=== PATIENT | female | born 1960 | race Caucasian/White ===

== ENCOUNTER 2019-04-15 10:14 | Observation (INO) | payer SELFPAY ==
--- NOTE | 2019-04-15 10:33 | RAD ---
EXAM: Single view of the chest HISTORY: Chest pain COMPARISON: None FINDINGS: Single view of the chest shows a normal sized cardiomediastinal silhouette. There appears to be a small to moderate hiatal hernia. There is no evidence of consolidation, mass, or pleural effusion. The bones are unremarkable. IMPRESSION: No evidence of acute cardiopulmonary disease
[2019-04-15 11:16] LABS: #Lymphocytes 1.6 thou/uL (1.20-3.40); #Monocytes 0.5 thou/uL (0.11-0.59); #Neutrophils 3.2 thou/uL (1.40-6.50); %Basophils 0.9 % (0.0-1.0); %Eosinophils 0.4 % (0.0-10.0); %Lymphocytes 29.9 % (21.0-51.0); %Monocytes 8.5 % (0.0-10.0); %Neutrophils 60.4 % (42.0-75.0); Mean Corpuscular HGB CONC 32.2 g/dL (32.0-36.0); Mean Corpuscular Hemoglobin 27.8 pg (27.0-31.0); Mean Corpuscular Volume 86.2 fL (78.0-98.0); Mean Platelet Volume 7.8 fL (7.4-10.4); Platelet Count 257 thou/uL (130-400); RBC Distribution Width 13.5 % (11.5-14.5); Red Blood Cell (RBC) Count 4.32 mill/uL (4.20-5.40); White Blood Cell (WBC) Count 5.3 thou/uL (4.8-10.8)
[2019-04-15] MEDS ORDERED: Nitroglycerin 2% Ointment 1 INCH/1 GM Packet ONE ×2 (11:22→17:15)
[2019-04-15 11:54] LABS: ALT (SGPT) 21 U/L (8-55); AST (SGOT) 21 U/L (5-34); Albumin 4.1 g/dL (3.5-5.0); Alkaline Phosphatase 97 U/L (40-150); Anion Gap 13 mmol/L (10-20); BUN (Urea Nitrogen) 11 mg/dL (9.8-20.1); Bilirubin, Total 0.2 mg/dL (0.2-1.2); CK (CPK) 192 U/L (29-168); Calc. Creatinine Clearance 0 mL/min (70-130); Calcium 9.4 mg/dL (7.8-10.44); Carbon Dioxide 23 mmol/L (22-29); Chloride 110 mmol/L (98-107); Estimated GFR-MDRD 71; Globulin 2.2 g/dL (2.4-3.5); Glucose 101 mg/dL (70-105); Lipase 36 U/L (8-78); Potassium 4.1 mmol/L (3.5-5.1); Protein, Total 6.3 g/dL (6.0-8.3); Sodium 142 mmol/L (136-145)
[2019-04-15 16:42] VITALS: BMI 30.5
[2019-04-15] MEDS ORDERED: Acetaminophen 325 MG TAB PO PRN (16:48)
[2019-04-15] MEDS ORDERED: Ondansetron ODT 4 MG TAB SL PRN (16:48)
[2019-04-15] MEDS ORDERED: Ondansetron PF 4 MG/2 ML Vial IVP PRN (16:48)
[2019-04-15 17:41] LABS: Troponin I Less than 0.010 ng/mL (< 0.028)
[2019-04-15] MEDS ORDERED: Senokot S 8.6-50 MG TAB PO PRN (17:56)
[2019-04-15] MEDS ORDERED: HYDROcodone/Acetaminophen 5/325 mg Tablet PO PRN (17:56)
[2019-04-15] MEDS: Famotidine 20 MG TAB PO SCH (18:22)
[2019-04-15 19:40] LABS: Troponin I Less than 0.010 ng/mL (< 0.028)
[2019-04-15] MEDS ORDERED: Nitroglycerin 2% Ointment 1 INCH/1 GM Packet TOP SCH (22:00)
--- NOTE | 2019-04-16 00:49 | HP ---
PRIMARY CARE PHYSICIAN: Dr. Benavides. CHIEF COMPLAINT: Chest pain. HISTORY OF PRESENT ILLNESS: Ms. Pickett is a 58-year-old female, who reported to the emergency room after having severe chest pain this morning. Reports that it radiated to her neck, shoulder and left arm. Reports that she has had similar episodes in the last couple of months, but today was the worst. She reports some shortness of breath with some nausea. Denies any vomiting. Reports right ankle and legs swell on occasion. Denies smoking, fevers, chills, abdomen pain, dysuria, hematuria, or incontinence. The patient reports that the nitroglycerin paste that she got today actually helped the pain and that has subsided. EKG in the emergency room shows normal sinus rhythm at [address] segments, T-waves are normal, axis is normal, initial troponin x2 is undetectable. The patient to be admitted to the observation unit for further chest pain workup. REVIEW OF SYSTEMS: Reports chest pain with radiation to neck and left arm. Reports intermittent lower leg extremity swelling. All other systems are reviewed and are negative unless mentioned in the HPI. PAST MEDICAL HISTORY: Pertinent for GERD. PAST SURGICAL HISTORY: Cholecystectomy. PSYCHIATRIC HISTORY: Depression. SOCIAL HISTORY: The patient lives at home with family. Denies any alcohol or drug use. Has no smoking history. KNOWN ALLERGIES: None. CURRENT MEDICATIONS: The patient takes; 1. Celexa 40 mg p.o. daily. 2. Protonix 20 mg p.o. b.i.d. PHYSICAL EXAMINATION: VITAL SIGNS: Blood pressure 123/72, pulse is 82, respiratory rate is 18, temperature is 98.5, pO2 sats are 98% on room air. CONSTITUTIONAL: The patient is in no apparent distress. She is alert and oriented to person, place, and time. HEENT: Head is atraumatic and normocephalic. Eyes; eyelids are normal to inspection. Pupils are equally round and reactive to light. ENT; mouth exam is normal. Mucous membranes are moist. NECK: Normal range of motion. RESPIRATORY/CHEST: Breath sounds are clear. Chest expansion is equal. CARDIOVASCULAR: Regular heart rate and rhythm. Heart sounds are normal. ABDOMEN: Nontender. Bowel sounds are heard. BACK: Normal range of motion. No tenderness. EXTREMITIES: Upper extremity; normal inspection, normal range of motion, no edema is noted, radial pulses equal bilaterally. Lower extremity; femoral pulses normal, no clubbing, no edema, no tenderness is noted, pedal pulses equal bilaterally. NEUROLOGIC: The patient is oriented to person, place, and time. Speech is normal. SKIN: Warm, dry, normal in color. ASSESSMENT AND PLAN: 1. Chest pain. We will trend troponins, first two have been undetectable. The patient will have a stress test in the morning to further rule out acute coronary syndrome. We will check fasting lipids in the morning. Check TSH level. We have added aspirin 325 mg p.o. daily. 2. History of depression. We will continue home medications. 3. History of gastroesophageal reflux disease. We will continue home medications. 4. Gastrointestinal and deep venous thrombosis prophylaxis has been started. Job ID: [id number]
[2019-04-16 06:06] LABS: #Eosinphils 0.1 thou/uL (0.0-0.7); #Monocytes 0.5 thou/uL (0.11-0.59); #Neutrophils 2.3 thou/uL (1.40-6.50); %Basophils 0.8 % (0.0-1.0); %Eosinophils 1.1 % (0.0-10.0); %Lymphocytes 40.8 % (21.0-51.0); %Monocytes 10.5 % (0.0-10.0); %Neutrophils 46.8 % (42.0-75.0); Hemoglobin 12.4 g/dL (12.0-16.0); Mean Corpuscular Hemoglobin 28.3 pg (27.0-31.0); Mean Corpuscular Volume 85.8 fL (78.0-98.0); Mean Platelet Volume 8.1 fL (7.4-10.4); Platelet Count 231 thou/uL (130-400); RBC Distribution Width 13.4 % (11.5-14.5); Red Blood Cell (RBC) Count 4.36 mill/uL (4.20-5.40); White Blood Cell (WBC) Count 4.9 thou/uL (4.8-10.8)
[2019-04-16 06:26] LABS: Anion Gap 11 mmol/L (10-20); BUN (Urea Nitrogen) 11 mg/dL (9.8-20.1); Calc. Creatinine Clearance 93 mL/min (70-130); Calcium 9.1 mg/dL (7.8-10.44); Carbon Dioxide 24 mmol/L (22-29); Cardiac Risk 4.6 (Less than 4.5); Chloride 107 mmol/L (98-107); Cholesterol 226 mg/dl (< 200 Desired); Estimated GFR-MDRD 72; Glucose 91 mg/dL (70-105); HDL Cholesterol 49 mg/dL (>60 Neg Risk); LDL Cholesterol, Calculated 150 mg/dL; Potassium 3.9 mmol/L (3.5-5.1); Sodium 138 mmol/L (136-145); Triglycerides 133 mg/dL (Less than 150)
[2019-04-16] MEDS: Famotidine 20 MG TAB PO SCH ×3 (09:09→20:24)
[2019-04-16] MEDS: Citalopram 20 MG TAB PO SCH ×2 (09:09→11:45)
[2019-04-16] MEDS: Enoxaparin Sodium 40 MG/0.4 ML SYRINGE SC SCH (09:09)
[2019-04-16] MEDS: Aspirin 325 mg Enteric Coated Tablet PO SCH ×2 (09:09→11:45)
--- NOTE | 2019-04-16 14:26 | PDOC.HOSPP ---
- Subjective Encounter Date: 04/16/19 Encounter Time: 12:20 Subjective: is sitting in chair, no chest pain or palp - Objective Vital Signs & Weight: Vital Signs (12 hours) Temp Pulse Resp BP Pulse Ox 04/16/19 11:40 98.3 F 67 16 118/61 100 04/16/19 07:34 98.4 F 74 16 113/57 L 96 04/16/19 04:48 97.9 F 79 18 111/60 97 Weight Weight 172 lb 4.8 oz I&O: 04/15/19 04/16/19 04/17/19 06:59 06:59 06:59 Intake Total 1200 Output Total 800 Balance 400 Result Diagrams: 04/16/19 05:35 04/16/19 05:35 Hospitalist ROS - Medication Medications: Active Medications Generic Name Dose Route Start Last Admin Trade Name Charlieq PRN Reason Stop Dose Admin Aspirin 325 mg 04/16/19 09:00 04/16/19 11:45 Ecotrin PO 325 mg DAILY JP Administration Citalopram Hydrobromide 40 mg 04/16/19 09:00 04/16/19 11:45 Celexa PO 40 mg DAILY JP Administration Enoxaparin Sodium 40 mg 04/16/19 09:00 04/16/19 09:09 Lovenox SC Not Given 09 JP Famotidine 20 mg 04/15/19 21:00 04/16/19 11:45 Pepcid PO 20 mg BID JP Administration Pantoprazole Sodium 20 mg 04/15/19 21:00 04/16/19 11:45 Protonix PO 20 mg BID JP Administration - Exam General Appearance: NAD, awake alert Eye: PERRL, anicteric sclera ENT: normocephalic atraumatic, no oropharyngeal lesions Neck: supple, no JVD Heart: RRR, no murmur, no rubs Respiratory: no wheezes, no rales Gastrointestinal: soft, non-tender, normal bowel sounds Extremities: no cyanosis, no edema Neurological: CN's grossly intact, no focal deficits Psychiatric: normal affect, A&O x 3 Hosp A/P (1) Chest pain Code(s): R07.9 - CHEST PAIN, UNSPECIFIED Status: Acute Qualifiers: Chest pain type: unspecified Qualified Code(s): R07.9 - Chest pain, unspecified (2) Depression Code(s): F32.9 - MAJOR DEPRESSIVE DISORDER, SINGLE EPISODE, UNSPECIFIED Status : Chronic Qualifiers: Depression Type: major depressive disorder (3) GERD (gastroesophageal reflux disease) Code(s): K21.9 - GASTRO-ESOPHAGEAL REFLUX DISEASE WITHOUT ESOPHAGITIS Status: Chronic (4) Obesity (BMI 30.0-34.9) Code(s): E66.9 - OBESITY, UNSPECIFIED Status: Chronic - Plan trop x 3 is -ve LDL is 150 will have 2 day stress test hemostable add lipitor to asp, celexa and protonix
[2019-04-17] MEDS: Aspirin 325 mg Enteric Coated Tablet PO SCH (08:58)
[2019-04-17] MEDS: Enoxaparin Sodium 40 MG/0.4 ML SYRINGE SC SCH (08:58)
[2019-04-17] MEDS: Citalopram 20 MG TAB PO SCH (08:58)
[2019-04-17] MEDS: Famotidine 20 MG TAB PO SCH (08:58)
--- NOTE | 2019-04-17 09:35 | NM ---
MYOCARDIAL PERFUSION SCAN: INDICATION: Chest pain. TECHNIQUE: The patient was given 33 mCi of technetium sestamibi for rest imaging and 30 mCi for stress imaging f ollowing a 2 day protocol. Patient was stressed with exercise according to [place] protocol. Patient reached 106% of maximal age-p redicted heart rate. Left ventricle imaged with SPECT imaging. Attenuation correction images obtained. FINDINGS: Normal activity throughout the left ventricle seen on stress and rest images. No evidence of reversib le ischemia seen on nonattenuation corrected images. Wall motion is normal. Ejection fraction is recorded at over 80%. IMPRESSION: No evidence of reversible ischemia. POS: OFF
[2019-04-17 12:34] VITALS: BP 157/75; TEMP 98.2
--- NOTE | 2019-04-17 15:25 | DIS ---
DATE OF ADMISSION: 04/15/2019 DATE OF DISCHARGE: 04/17/2019 PRIMARY CARE PHYSICIAN: Xuan Benavides MD DISCHARGE DISPOSITION: To home. PRIMARY DISCHARGE DIAGNOSIS: Chest pain, which is noncardiac. SECONDARY DISCHARGE DIAGNOSES: Gastroesophageal reflux disease, obesity, and depression. PROCEDURES DONE DURING HOSPITALIZATION: The patient has had troponin x3 negative. Chest x-ray showed no acute cardiopulmonary abnormalities. LDL was 150. Nuclear stress test done, which was a two-day protocol showed wall motion to be normal. Ejection fraction was 80%. No evidence of reversible ischemia was seen. H and H 12 and 37, platelet count 231, and white count of 4.9. Triglycerides 133, total cholesterol 226, HDL 49, TSH 1.38, and lipase is 36. DISCHARGE MEDICATION: 1. Lipitor 40 mg p.o. daily. 2. Protonix 20 mg twice daily. 3. Celexa 40 mg p.o. daily. ALLERGIES: NO KNOWN DRUG ALLERGIES. DISCHARGE PLAN: The patient to follow up with her primary care physician, Dr. Xuan Benavides, in 1 week. BRIEF COURSE DURING HOSPITALIZATION: The patient initially came in with complaints of chest pain. In view of risk factors, the patient was placed under observation on telemetry. She has had ACS evidence based protocol followed. Three sets of troponin were negative. Nuclear stress test, which was a two day protocol was negative for reversible ischemia. The patient was found to have had LDL of 150 and has been placed on Lipitor. She was counseled with regard to healthy eating. She is otherwise hemodynamically stable and will be shortly discharged home. Please note, I have seen and examined the patient on the day of discharge. Job ID: [id number] [facility]
--- NOTE | 2019-04-20 15:20 | EKG ---
Test Reason : CP Blood Pressure : / mmHG Vent. Rate : 075 BPM Atrial Rate : 075 BPM P-R Int : 132 ms QRS Dur : 076 ms QT Int : 404 ms P-R-T Axes : 055 -01 023 degrees QTc Int : 451 ms Normal sinus rhythm Normal ECG Confirmed by ESME THOMAS MD ([id number]), editorial project manager ROBERTA MARTINEZ ([id number]) on 04/20/2019 3:19:51 PM Referred By: Confirmed By:ESME THOMAS MD
== END 2019-04-17 14:42 | disposition home or self-care (01) ==
LOC: ERS 10:14 → 2SW 16:05
PROVIDERS: ADMIT Internal Medicine; ATTEND Internal Medicine
DX: R07.89 Other chest pain (principal); K21.9 Gastro-esophageal reflux disease without esophagitis; F32.9 Major depressive disorder, single episode, unspecified; E66.9 Obesity, unspecified; Z68.31 Body mass index [BMI] 31.0-31.9, adult; Z79.899 Other long term (current) drug therapy
CPT/HCPCS: 36415; 71045; 78452; 80048; 80053; 80061; 82550; 83690; 84443; 84484; 85025; 85379; 93005; 93017; 94760; A9500; G0378; J1650; Q0162

== ENCOUNTER 2019-06-23 15:46 | Emergency (ER) | payer SELFPAY ==
--- NOTE | 2019-06-23 16:11 | RAD ---
Exam:Right hand third digit 3 views HISTORY: Crush injury. Laceration. COMPARISON: None FINDINGS: Comminuted tuft fracture. No radiopaque foreign body. IMPRESSION: Tuft fracture. No radiopaque foreign body.
[2019-06-23] MEDS ORDERED: Lidocaine 1% (PF) 30 ML VIAL ONE (16:36)
[2019-06-23] MEDS ORDERED: Adacel (T-DAP) 0.5 ML SYRINGE ONE (16:36)
== END 2019-06-23 18:04 | disposition home or self-care (01) ==
LOC: ERS 15:46
DX: S62.632B Displaced fracture of distal phalanx of right middle finger, initial encounter for open fracture (principal); E78.5 Hyperlipidemia, unspecified; K21.9 Gastro-esophageal reflux disease without esophagitis; F41.9 Anxiety disorder, unspecified; F32.9 Major depressive disorder, single episode, unspecified; Z79.899 Other long term (current) drug therapy; W23.0XXA Caught, crushed, jammed, or pinched between moving objects, initial encounter
CPT/HCPCS: 12002; 90471; 90715; J2001

== ENCOUNTER 2019-06-27 13:29 | Outpatient (CLI) | payer SELFPAY ==
[2019-06-27 14:44] LABS: Bacteria/HPF None Seen HPF (None Seen); Bilirubin Negative (Negative); Blood, Urine Trace (Negative); Clarity Clear (Clear); Glucose, Urine (Dipstick) Normal (Negative); Leukocyte Negative Leu/uL (Negative); Nitrite Negative (Negative); Protein, Urine (Dipstick) Negative (Neg-Trace); RBC/HPF 0-3 HPF (0-3); Squamous Epithelial None Seen HPF (0-3); Urobilinogen Normal mg/dL (Less than 2); WBC/HPF 0-3 HPF (0-3)
[2019-06-27 15:00] LABS: #Eosinphils 0.1 thou/uL (0.0-0.7); #Lymphocytes 2.5 thou/uL (1.20-3.40); #Monocytes 0.9 thou/uL (0.11-0.59); #Neutrophils 3.4 thou/uL (1.40-6.50); %Basophils 0.7 % (0.0-1.0); %Eosinophils 1.9 % (0.0-10.0); %Lymphocytes 35.7 % (21.0-51.0); %Monocytes 12.6 % (0.0-10.0); %Neutrophils 49.1 % (42.0-75.0); Hemoglobin 12.7 g/dL (12.0-16.0); Mean Corpuscular HGB CONC 33.3 g/dL (32.0-36.0); Mean Corpuscular Hemoglobin 28.8 pg (27.0-31.0); Mean Corpuscular Volume 86.6 fL (78.0-98.0); Mean Platelet Volume 7.8 fL (7.4-10.4); Platelet Count 263 thou/uL (130-400); RBC Distribution Width 12.6 % (11.5-14.5); White Blood Cell (WBC) Count 6.9 thou/uL (4.8-10.8)
== END 2019-06-27 13:30 | disposition home or self-care (01) ==
LOC: LABBT 13:29
PROVIDERS: ATTEND Orthopaedic Surgery Hand Surgery
DX: Z01.812 Encounter for preprocedural laboratory examination (principal); S62.602A Fracture of unspecified phalanx of right middle finger, initial encounter for closed fracture; S60.031A Contusion of right middle finger without damage to nail, initial encounter
CPT/HCPCS: 81001; 85025

== ENCOUNTER 2019-07-16 10:33 | Day surgery (SDC) | payer OTHER ==
[2019-07-15 12:13] VITALS: BMI 30.1
[~2019-07-16 10:33] MED LIST: Dexamethasone 20 MG/5 ML VIAL ONE; Lidocaine 1% PF 5 ML VIAL ONE; Ondansetron PF 4 MG/2 ML Vial ONE; PROPOFOL 200 MG/20 ML VIAL ONE
[2019-07-16 14:09] LABS: #Eosinphils 0.1 thou/uL (0.0-0.7); #Lymphocytes 2.1 thou/uL (1.20-3.40); #Monocytes 0.5 thou/uL (0.11-0.59); %Basophils 0.6 % (0.0-1.0); %Eosinophils 0.9 % (0.0-10.0); %Lymphocytes 37.3 % (21.0-51.0); %Monocytes 8.8 % (0.0-10.0); %Neutrophils 52.4 % (42.0-75.0); Hemoglobin 12.1 g/dL (12.0-16.0); Mean Corpuscular HGB CONC 32.6 g/dL (32.0-36.0); Mean Corpuscular Hemoglobin 28.5 pg (27.0-31.0); Mean Corpuscular Volume 87.4 fL (78.0-98.0); Mean Platelet Volume 7.8 fL (7.4-10.4); Platelet Count 258 thou/uL (130-400); RBC Distribution Width 12.6 % (11.5-14.5); Red Blood Cell (RBC) Count 4.27 mill/uL (4.20-5.40); White Blood Cell (WBC) Count 5.7 thou/uL (4.8-10.8)
[2019-07-16] MEDS ORDERED: Fentanyl 100 MCG/2 ML VIAL ONE (15:38)
[2019-07-16] MEDS ORDERED: Bupivacaine PF 0.5% 30 ML VIAL ONE (15:38)
[2019-07-16] MEDS ORDERED: Bacitracin Zinc Ointment 30 gm TUBE ONE (15:39)
[2019-07-16] MEDS ORDERED: Sodium Chloride 0.9% 10 ML ONE (15:39)
[2019-07-16] MEDS ORDERED: Ketorolac Tromethamine 30 MG/ML VIAL ONE (18:26)
[2019-07-16] MEDS ORDERED: traMADol HCl 50 MG TAB ONE (19:50)
--- NOTE | 2019-07-17 08:29 | OP ---
DATE OF PROCEDURE: 07/16/2019 PREOPERATIVE DIAGNOSIS: Right middle finger palmar distal phalanx 2 x 1 cm wound with necrosis of dermis and epidermis down to underlying fat. POSTOPERATIVE DIAGNOSIS: Right middle finger palmar distal phalanx 2 x 1 cm wound with necrosis of dermis and epidermis down to underlying fat. PROCEDURE PERFORMED: 1. Debridement of wound, intermediate depth down to but not including bone. 2. Split-thickness skin graft, 2.5 x 1.0 cm harvested from the ipsilateral antecubital fossa. COMPLICATIONS: None. TOURNIQUET TIME: None. ESTIMATED BLOOD LOSS: 10 mL. INJECTABLE: Yes, 10 mL of 0.5% Marcaine at metacarpophalangeal block level middle finger prior to procedure and 10 mL at the antecubital fossa prior to harvesting skin graft, Marcaine without epinephrine. DESCRIPTION OF PROCEDURE: After successful general LMA technique, the limb was prepped and draped. The patient did not have the limb exsanguinated. Tourniquet was not inflated, so we could visualize where nonviable and viable tissue interface existed based on bleeding once debrided. We initially peeled off on the entire ulnar one-half of the injured area, just epidermis and the dermis was intact with excellent pink material. There was a small 1 mm zone transition and then we removed the epidermis. The underlying dermis was necrotic. We excised this down to and through about half of the fat layer before we found bleeding and this left us with approximately 2.25 to 2.5 cm x 1 cm area of full-thickness skin loss. For this reason, we chose the site at the antecubital fossa full-thickness skin graft and then primary closure. The graft was harvested as measured and listed above. We then thinned it to palmar, there was no fat. We placed this on the debrided middle finger wound bed, bolstered it with 4 sutures of 4-0 nylon each in each corner, held it in place with a running 5-0 chromic suture, and then placed first bacitracin heavy layer with Adaptic, then mineral oil soaked cotton ball with 2 bolster sutures at right angles to each other. No circulation was affected. We then placed a bulky dressing here, put bacitracin, Adaptic, 4x4, Kerlix, and then at the proximal wound, we closed it with a running subcutaneous Monocryl and then for the epidermal closure used Dermabond. Dry Adaptic, 4x4, Kerlix placed here, then we used Coban to cover the hands to the level of the mid forearm, proximal distal third of forearm and from the elbow to the level of distal forearm, we covered this gauze with 4-inch Hema wrap. The patient left the operating room without evidence of anesthetic or operative complication. Job ID: [id number]
== END 2019-07-16 20:45 | disposition home or self-care (01) ==
LOC: SDC 10:33
PROVIDERS: ATTEND Orthopaedic Surgery Hand Surgery
PROC: 0JBJ0ZZ Excision of Right Hand Subcutaneous Tissue and Fascia, Open Approach (ICD-10-PCS; principal; 2019-07-16)
PROC: 0HRFX73 Replacement of Right Hand Skin with Autologous Tissue Substitute, Full Thickness, External Approach (ICD-10-PCS; principal; 2019-07-16)
DX: I96 Gangrene, not elsewhere classified (principal); F32.9 Major depressive disorder, single episode, unspecified; E78.00 Pure hypercholesterolemia, unspecified; K21.9 Gastro-esophageal reflux disease without esophagitis; M41.9 Scoliosis, unspecified; Z79.899 Other long term (current) drug therapy; Z87.891 Personal history of nicotine dependence
CPT/HCPCS: 36415; 85025; 85652; J0690; J1100; J1885; J2001; J2405; J2704; J3010; J3490; S0020

== ENCOUNTER 2020-07-27 10:35 | Outpatient (CLI) | payer OTHER ==
--- NOTE | 2020-07-27 11:27 | BD ---
DEXA BONE MINERAL DENSITY STUDY: HISTORY: Osteoporosis screening. COMPARISON: None. FINDINGS: Lumbar Spine: BMD (g/cm2) L1 0.987 T-Score: 0.0 1.1 L2 1.156 T-Score: 1.2 2.5 L3 1.271 T-Score: 1.7 3.1 L4 1.136 T-Score: 0.7 2.1 L1-L4 1.141 T-Score: 0.9 2.2 Femoral Neck: 0.787 T-Score: -0.6 0.7 Total Femur: 0.968 T-Score: 0.2 1.1 WHO classification: Normal. Impression: Normal bone mineral density. POS: [facility]
--- NOTE | 2020-07-27 12:06 | MMO ---
Bilateral MAMMO Bilat Screen [facility]. CLINICAL HISTORY: Patient is 59 years old and is seen for screening. VIEWS: The views performed were: bilateral craniocaudal with tomosynthesis and bilateral mediolateral oblique with tomosynthesis. FILMS COMPARED: The present examination has been compared to prior imaging studies performed at [facility] on 11/03/2003 and 05/03/2004, and at [facility] on 04/19/2017. This study has been interpreted with the assistance of computer-aided detection. MAMMOGRAM FINDINGS: There are scattered fibroglandular densities. There are no suspicious masses, suspicious calcifications, or new areas of architectural distortion. IMPRESSION: THERE IS NO MAMMOGRAPHIC EVIDENCE OF MALIGNANCY. A ROUTINE FOLLOW-UP MAMMOGRAM IN 1 YEAR IS RECOMMENDED. THE RESULTS OF THIS EXAM WERE SENT TO THE PATIENT. ACR BI-RADS Category 1 - Negative MAMMOGRAPHY NOTE: 1. A negative mammogram report should not delay a biopsy if a dominant of clinically suspicious mass is present. 2. Approximately 10% to 15% of breast cancers are not detected by mammography. 3. Adenosis and dense breasts may obscure an underlying neoplasm. Reported by: MICHELLE DURAN MD Electonically Signed: [id number]
== END 2020-07-27 10:36 | disposition home or self-care (01) ==
LOC: BICMAMMO 10:35
PROVIDERS: ATTEND Internal Medicine
DX: Z12.31 Encounter for screening mammogram for malignant neoplasm of breast (principal); Z13.820 Encounter for screening for osteoporosis
CPT/HCPCS: 77063; 77067; 77080

== ENCOUNTER 2022-07-29 12:35 | Emergency (ER) | payer SELFPAY ==
[2022-07-29] MEDS ORDERED: Acetaminophen 500 MG TAB ONE (13:16)
[2022-07-29 13:45] LABS: Hemoglobin 15.4 g/dL (12.0-16.0); Mean Corpuscular HGB CONC 34.2 g/dL (32.0-36.0); Mean Corpuscular Hemoglobin 30.1 pg (27.0-31.0); Mean Corpuscular Volume 87.9 fl (78.0-98.0); Mean Platelet Volume 7.9 fL (7.4-10.4); Platelet Count 240 10x3/uL (130-400); RBC Distribution Width 12.5 % (11.5-14.5); Red Blood Cell (RBC) Count 5.12 mill/uL (4.20-5.40); White Blood Cell (WBC) Count 4.6 10x3/uL (4.8-10.8)
[2022-07-29] MEDS ORDERED: Ondansetron PF 4 MG/2 ML Vial ONE (13:45)
[2022-07-29] MEDS ORDERED: Ketorolac Tromethamine 30 MG/ML VIAL ONE (13:45)
[2022-07-29 14:01] LABS: Band 22 % (5-11); Lymphocytes 14 % (21-51); MDiff Complete? YES; Monocytes 17 % (0-10); Neutrophil 43 % (42-75); Platelet Morphology Comment Appears Adequate; RBC Morphology Normal; Reactive Lymphocytes 4 % (0-10)
[2022-07-29 14:04] LABS: ALT (SGPT) 43 U/L (8-55); AST (SGOT) 43 U/L (5-34); Albumin 4.1 g/dL (3.5-5.0); Alkaline Phosphatase 130 U/L (40-110); Anion Gap 15 mmol/L (10-20); BUN (Urea Nitrogen) 10 mg/dL (9.8-20.1); Bilirubin, Total 0.3 mg/dL (0.2-1.2); Calc. Creatinine Clearance 0 mL/min (70-130); Calcium 9.3 mg/dL (7.8-10.44); Carbon Dioxide 20 mmol/L (22-29); Chloride 101 mmol/L (98-107); Estimated GFR 83; Glucose 107 mg/dL (70-105); Potassium 3.4 mmol/L (3.5-5.1); Protein, Total 7.1 g/dL (6.0-8.3); Sodium 133 mmol/L (136-145)
== END 2022-07-29 15:31 | disposition home or self-care (01) ==
LOC: ERS 12:35
DX: J10.1 Influenza due to other identified influenza virus with other respiratory manifestations (principal); E78.5 Hyperlipidemia, unspecified; K21.9 Gastro-esophageal reflux disease without esophagitis; Z20.822 Contact with and (suspected) exposure to COVID-19
CPT/HCPCS: 36415; 71045; 80053; 84484; 85025; 87804; 96361; 96374; 96375; J1885; J2405; U0003; U0005

== ENCOUNTER 2022-08-11 11:33 | Emergency (ER) | payer SELFPAY ==
[2022-08-11 13:01] LABS: #Lymphocytes 1.5 thou/uL (1.20-3.40); #Monocytes 1.2 thou/uL (0.11-0.59); #Neutrophils 12.4 thou/uL (1.40-6.50); %Basophils 0.1 % (0.0-1.0); %Lymphocytes 9.7 % (21.0-51.0); %Monocytes 7.8 % (0.0-10.0); %Neutrophils 82.4 % (42.0-75.0); Hemoglobin 14.2 g/dL (12.0-16.0); Mean Corpuscular Hemoglobin 28.7 pg (27.0-31.0); Mean Platelet Volume 7.5 fL (7.4-10.4); Platelet Count 407 10x3/uL (130-400); RBC Distribution Width 12.5 % (11.5-14.5); Red Blood Cell (RBC) Count 4.95 mill/uL (4.20-5.40)
[2022-08-11] MEDS ORDERED: Acetaminophen 325 MG TAB ONE (13:10)
[2022-08-11] MEDS ORDERED: Ibuprofen 200 MG TAB ONE (13:10)
[2022-08-11] MEDS ORDERED: Ondansetron ODT 4 MG TAB ONE (13:10)
[2022-08-11 13:21] LABS: Anion Gap 15 mmol/L (10-20); BUN (Urea Nitrogen) 11 mg/dL (9.8-20.1); Calc. Creatinine Clearance 0 mL/min (70-130); Calcium 9.5 mg/dL (7.8-10.44); Carbon Dioxide 21 mmol/L (22-29); Chloride 104 mmol/L (98-107); Estimated GFR 78; Glucose 115 mg/dL (70-105); Potassium 3.7 mmol/L (3.5-5.1); Sodium 136 mmol/L (136-145)
[2022-08-11] MEDS ORDERED: Iopamidol-370 76% 500 ML 1 ML ONE (14:17)
[2022-08-11] MEDS ORDERED: Cefepime 2 GM VIAL ONE (14:20)
[2022-08-11] MEDS ORDERED: Dexamethasone 10 MG/ML VIAL ONE (14:20)
[2022-08-11 14:30] LABS: Bilirubin Negative (Negative); Blood, Urine Negative (Negative); Clarity Clear (Clear); Glucose, Urine (Dipstick) Normal (Negative); Ketone, Urine Negative (Negative); Leukocyte Negative Leu/uL (Negative); Nitrite Negative (Negative); Protein, Urine (Dipstick) Negative (Neg-Trace); Specific Gravity, Urine 1.008 (1.002-1.036); Urobilinogen Normal mg/dL (Less than 2); pH, Urine 6.5 (5.0-9.0)
== END 2022-08-11 16:02 | disposition home or self-care (01) ==
LOC: ERS 11:33
DX: J18.0 Bronchopneumonia, unspecified organism (principal); E86.0 Dehydration; D72.829 Elevated white blood cell count, unspecified; E78.5 Hyperlipidemia, unspecified; K21.9 Gastro-esophageal reflux disease without esophagitis; Z20.822 Contact with and (suspected) exposure to COVID-19
CPT/HCPCS: 36415; 71046; 71275; 80048; 81003; 83605; 85025; 85379; 87040; 87804; 93005; 96374; 96375; J0692; J1100; Q0162; Q9967; U0003; U0005

== ENCOUNTER 2024-05-15 13:55 | Outpatient (CLI) | payer OTHER | END 2024-05-15 13:56 | disposition home or self-care (01) | LOC: BICMAMMO 13:55 | PROVIDERS: ATTEND Family Medicine | DX: Z12.31 Encounter for screening mammogram for malignant neoplasm of breast (principal) | CPT/HCPCS: 77063; 77067 ==

== ENCOUNTER 2025-03-19 16:10 | Observation (INO) | payer SELFPAY ==
[2025-03-19 19:22] VITALS: BMI 34.7
[2025-03-19] MEDS ORDERED: Nitroglycerin 0.4 MG TAB (25 Tab Bottle) SL PRN (19:38)
[2025-03-19] MEDS ORDERED: Ondansetron PF 4 MG/2 ML Vial IVP PRN (19:38)
[2025-03-20] MEDS: Acetaminophen 325 MG TAB PO PRN (00:15)
[2025-03-20 05:27] LABS: #Basophils 0.03 10x3/uL (0.0-0.2); #Eosinophils 0.07 10x3/uL (0.0-0.7); #Monocytes 0.73 10x3/uL (0.11-0.59); #Neutrophils 2.55 10x3/uL (1.40-6.50); %Basophils 0.5 % (0.0-1.0); %Eosinophils 1.1 % (0.0-10.0); %Lymphocytes 47.0 % (21.0-51.0); %Monocytes 11.4 % (0.0-10.0); %Neutrophils 39.7 % (42.0-75.0); Hematocrit 38.2 % (36.0-47.0); Hemoglobin 11.7 g/dL (12.0-16.0); Mean Corpuscular Hemoglobin 26.0 pg (27.0-31.0); Mean Corpuscular Volume 84.9 fL (78.0-98.0); Platelet Count 313 10x3/uL (130-400); Red Blood Cell (RBC) Count 4.50 mill/uL (4.20-5.40); White Blood Cell (WBC) Count 6.42 10x3/uL (4.8-10.8)
[2025-03-20 05:55] LABS: Anion Gap 13 mmol/L (10-20); BUN (Urea Nitrogen) 16 mg/dL (9.8-20.1); Calc. Creatinine Clearance 75 mL/min (70-130); Calcium 8.9 mg/dL (7.8-10.44); Carbon Dioxide 24 mmol/L (23-31); Cardiac Risk 5.8 (Less than 4.5); Chloride 108 mmol/L (98-107); Cholesterol 228 mg/dl (< 200 Desired); Glucose 105 mg/dL (80-115); HDL Cholesterol 39 mg/dL (>60 Neg Risk); LDL Cholesterol, Calculated 155 mg/dL; Potassium 4.3 mmol/L (3.5-5.1); Sodium 141 mmol/L (136-145); Triglycerides 169 mg/dL (Less than 150)
[2025-03-20] MEDS: Pantoprazole 40 MG DR.TAB PO SCH (09:08)
[2025-03-20] MEDS: BuPROPion XL 150 MG ER.TAB PO SCH (09:08)
[2025-03-20] MEDS: Enoxaparin 40 MG (0.4 mL) SYRINGE SC SCH (09:08)
[2025-03-20 13:31] VITALS: BP 156/87; TEMP 98.1
== END 2025-03-20 16:20 | disposition home or self-care (01) ==
LOC: OBS 17:54
PROVIDERS: ADMIT Internal Medicine; ATTEND Family Medicine
DX: R07.89 Other chest pain (principal); G43.909 Migraine, unspecified, not intractable, without status migrainosus; K21.9 Gastro-esophageal reflux disease without esophagitis; E78.5 Hyperlipidemia, unspecified; F41.9 Anxiety disorder, unspecified; Z79.899 Other long term (current) drug therapy; Z87.891 Personal history of nicotine dependence
CPT/HCPCS: 36415; 78452; 80048; 80061; 85025; 93017; A9502; J1650; J2785